=== PATIENT | male | born 1930 | race Caucasian/White ===

== ENCOUNTER 2016-05-23 14:24 | Emergency (ER) | payer BC, MEDICARE, OTHER ==
[~2016-05-23] VITALS: Ht 167.6 cm; Wt 81.6 kg
[2016-05-23 15:09] LABS: Basophils # (auto) 0 uL; Basophils % (auto) 0.3 % (0.0-2.0); Eosinophils # (auto) 0.2 uL; Eosinophils % (auto) 3.2 % (0.0-7.0); Hematocrit 45.5 % (41.0-53.0); Hemoglobin 15.4 g/dL (13.5-17.5); Lymphocytes # (auto) 1.5 uL; Lymphocytes % (auto) 22.3 % (10.0-50.0); Mean Corpuscular Hemoglobin 33.3 pg (28.0-32.0); Mean Corpuscular Hgb Conc. 33.8 g/dL (32.0-36.0); Mean Corpuscular Volume 98.5 fL (80.0-100.0); Monocytes # (auto) 0.6 uL; Monocytes % (auto) 9.8 % (0.0-12.0); Neutrophils # (auto) 4.2 uL; Neutrophils % (auto) 64.4 % (37.0-80.0); Platelet Count (auto) 147 10^3/uL (140-450); Red Cell Distribution Width 12.6 % (11.6-16.0); White Blood Cell 6.6 10^3/uL (4.4-10.8)
[2016-05-23 15:27] LABS: INR 0.95 (0.9-1.15); Partial Thromboplastin Time 25.7 sec (22.64-33.71); Prothrombin Time 10.3 sec (9.37-12.3)
[2016-05-23 15:32] LABS: Albumin 3.9 g/dL (3.4-5.0); Anion Gap 9 (5-15); Aspartate Aminotransferase 43 U/L (15-37); BUN/Creatinine Ratio 20.9; Blood Urea Nitrogen 23 mg/dL (7-18); Calcium 9.1 mg/dL (8.5-10.1); Carbon Dioxide 26 mmol/L (21-32); Chloride 108 mmol/L (98-107); GFR African American 82 mL/min; GFR Non-African American 68 mL/min; Glucose 107 mg/dL (74-106); Magnesium 2.4 mg/dL (1.6-2.6); Potassium 4.2 mmol/L (3.5-5.1); Sodium 143 mmol/L (136-145)
[2016-05-23 15:37] LABS: Alkaline Phosphatase 72 U/L (45-117); Bilirubin, Total 0.5 mg/dL (0.2-1.0); Total Protein 7.5 g/dL (6.4-8.2)
[2016-05-23] MEDS ORDERED: AMLO5TAB2 PO (16:23)
[2016-05-23] MEDS ORDERED: CARV3.1240 PO (16:23)
[2016-05-23] MEDS ORDERED: BENA20TA4 PO (16:23)
[2016-05-23 17:36] VITALS: BP 157/86
== END 2016-05-23 17:57 | disposition home or self-care (01) ==
LOC: ER 14:24
DX: R00.1 Bradycardia, unspecified (principal); G45.9 Transient cerebral ischemic attack, unspecified; I10 Essential (primary) hypertension
CPT/HCPCS: 36415; 70450; 71010; 80053; 83735; 84484; 85025; 85610; 85730; 93005; 94761